=== PATIENT | male | born 1975 ===

== ENCOUNTER 2023-05-15 00:23 | Emergency (ER) | payer OTHER ==
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
[2023-05-15 00:53] VITALS: BP 130/80; PULSE 74; RESP 18; TEMP 97.5
[2023-05-15] MEDS ORDERED: MORPHINE SULFATE 4 MG/ML SYRINGE IM STA (01:06)
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
[2023-05-15] MEDS ORDERED: LIDOCAINE 1%-EPI 1:100,000 50 ML VIAL SQ STA (01:36)
[2023-05-15] MEDS ORDERED: BACITRACIN OINT 1 EACH PACKET TOPICAL ONE (02:55)
== END 2023-05-15 03:45 | disposition home or self-care (01) ==
LOC: EC 00:23
DX: S01.81XA Laceration without foreign body of other part of head, initial encounter (principal); W22.8XXA Striking against or struck by other objects, initial encounter
CPT/HCPCS: 70450; 99285; 96372; 12001; J2270